=== PATIENT | female | born 1965 | race Caucasian/White ===

== ENCOUNTER 2021-11-02 23:03 | Emergency (ER) | payer OTHER ==
[2021-11-03] MEDS ORDERED: SILVADENE20 GM TOP (01:18)
[2021-11-03] MEDS ORDERED: PERCOCET 5-3251 EACH PO (01:19)
== END 2021-11-03 01:44 | disposition home or self-care (01) ==
LOC: FER 23:03
DX: T23.202A Burn of second degree of left hand, unspecified site, initial encounter (principal); Z23 Encounter for immunization; Z88.5 Allergy status to narcotic agent; Z88.8 Allergy status to other drugs, medicaments and biological substances; X19.XXXA Contact with other heat and hot substances, initial encounter; Y92.89 Other specified places as the place of occurrence of the external cause; Y99.0 Civilian activity done for income or pay
CPT/HCPCS: 90715; 96372; 99283; J1170